=== PATIENT | male | born 1930 | race Caucasian/White ===

== ENCOUNTER 2017-05-03 20:27 | Emergency (ER) | payer MEDICARE ==
[~2017-05-03 20:27] MED LIST: ASPI-496 PO; ATOR20TA PO; BRIM5DRO2 EACHEYE; CEFD300C37 PO; CHOL2000 PO; ENAL5TAB PO; FINA5TAB4 PO; FLUT9.9S INH; LATA2.5D3 EACHEYE; LEVO50TA5 PO; LOSA50TA6 PO; METO25TA91 PO; NIAC100T3 PO; POTA10TA6 PO; TAMS-11 PO; TAMS0.4C2 PO
[2017-05-03] MEDS ORDERED: CARV6.25 PO (20:47)
[2017-05-03] MEDS ORDERED: MECLIZINE CHEWABLE 25 MG TAB PO ONE (21:00)
[2017-05-03] MEDS ORDERED: SODIUM CHLORIDE FLUSH 10ML SYR IVF ONE (21:00)
[2017-05-03] MEDS ORDERED: ONDANSETRON 2MG/ML, 2ML IVPush ONE (21:00)
[2017-05-03] MEDS ORDERED: MECLIZINE CHEWABLE 25 MG TAB ONE (21:01)
[2017-05-03 21:05] LABS: HEMATOCRIT 41.6 % (39.2-51.8); HEMOGLOBIN 13.9 g/dL (13.7-18.0); WHITE BLOOD COUNT 8.9 x10^3/uL (3.4-10)
[2017-05-03 21:19] LABS: BLOOD UREA NITROGEN 16 mg/dL (7-18)
[2017-05-03 21:24] LABS: IS PT STATUS REG ER OR PRE ER? YES
[2017-05-03 21:58] VITALS: BP 164/82
== END 2017-05-03 22:52 | disposition home or self-care (01) ==
LOC: ED 22:30
DX: H81.399 Other peripheral vertigo, unspecified ear (principal); I10 Essential (primary) hypertension
CPT/HCPCS: 36415; 70450; 71010; 80048; 81003; 82040; 84484; 85025; 93005; 99285

== ENCOUNTER → 2017-08-08 | Outpatient (CLI) | payer MEDICARE ==
[~2017-08-08] MED LIST changes: +CARV6.25 PO
== END | disposition home or self-care (01) ==
LOC: CVU 10:35
PROVIDERS: ATTEND Internal Medicine Cardiovascular Disease
DX: I65.23 Occlusion and stenosis of bilateral carotid arteries (principal); I10 Essential (primary) hypertension; I63.9 Cerebral infarction, unspecified
CPT/HCPCS: 93880